=== PATIENT | male | born 1980 | race Caucasian/White ===

== ENCOUNTER → 2017-10-26 10:44 | Outpatient (CLI) | payer OTHER, SELFPAY ==
[2017-10-26 12:19] LABS: Erythrocyte Sedimentation Rate < 1 mm/hr (0-15)
[2017-10-26 12:47] LABS: CRP < 2.90 mg/L (0.0-3.0)
[2017-10-27 16:11] LABS: Endomysial Antibody IgA Negative (Negative)
[2017-10-27 17:14] LABS: Immunoglobulin A 193 mg/dL (90-386); t-Transglutaminase IgA <2 U/mL (0-3)
== END ==
PROVIDERS: Family Provider Family Medicine; PCP Family Medicine; Visit Provider Family Medicine
DX: R14.0 Abdominal distension (gaseous) (principal)
CPT/HCPCS: 36415; 82784; 83516; 85652; 86140; 86255

== ENCOUNTER → 2017-12-07 09:44 | Outpatient (CLI) | payer OTHER, SELFPAY ==
--- NOTE | 2017-12-07 09:47 | NM_ITS ---
CLINICAL: 37-year-old male with reported history of chronic nausea. SEMI-SOLID PHASE 99m Tc SULFUR COLLOID GASTRIC EMPTYING STUDY COMPARISON: None available FINDINGS: The patient was administered 1.0 mCi of 99m Tc sulfur colloid mixed with oatmeal and consumed per os. Image acquisitions in the anterior-posterior projections for a total of 60 minutes. There is prompt visualization of the stomach. There is no gastroesophageal reflux identified. First order kinetics are maintained throughout the duration of the acquisitions. The T1/2 linear fit was calculated to be 88.21 minutes, (Normal: 12-56 minutes). NM/Gastric Emptying Study IMPRESSION: 1. ABNORMAL 99m Tc sulfur colloid semi-solid phase (oatmeal) gastric emptying imaging examination. A. There is delayed semi-solid phase gastric emptying compared to normal controls with maintained first order kinetics throughout all components of the examination. (Najma et al, J Nucl Med Tech 38: 186, 2010). Electronically Signed: Toan Poe DO at 23:37 EDT Tel , Service support ,
== END ==
PROVIDERS: Family Provider Family Medicine; PCP Family Medicine; Referring Provider Internal Medicine Gastroenterology; Visit Provider Internal Medicine Gastroenterology
DX: R11.0 Nausea (principal)
CPT/HCPCS: 78264; A9541

== ENCOUNTER → 2018-03-21 08:13 | Outpatient (CLI) | payer OTHER, SELFPAY ==
--- NOTE | 2018-03-21 08:16 | US_ITS ---
STUDY: ABDOMINAL ULTRASOUND - RIGHT UPPER QUADRANT REASON FOR VISIT: Male, 37 years old. 2 month history of right upper quadrant pain with nausea. TECHNIQUE: Ultrasound evaluation of the right upper quadrant was performed with real-time and static palacio-scale imaging. TECHNICAL QUALITY: Adequate. COMPARISON: None. FINDINGS: Liver: The liver measures 13.3 cm. There is normal echogenicity of the liver. The bile ducts are within normal limits. There is hepatic color flow. The direction of portal flow is hepatopetal. In the left lobe of the liver, there is a 1.8 cm x 1.4 cm x 1.6 cm echogenic nodule suggestive of a hemangioma. Adjacent to this, a similar appearing nodular density measuring 1.2 cm x 1 cm x 1.4 cm is seen. These most likely represent hepatic hemangiomas. Gallbladder: Normal distended gallbladder. The gallbladder wall measures 2.3 mm. There is a negative sonographic Marina's sign. There is no pericholecystic fluid. There are no gallstones. Common Bile Duct (C.B.D.): The common bile duct measures 4.3 mm. Pancreas: Normal size of the head, body and tail of the pancreas. There is normal echogenicity of the pancreas. There is no demonstrated pancreatic mass or cyst. Right Kidney: Normal size of the right kidney. The right kidney measures 11.5 cm x 6.4 cm x 6.3 cm. Normal renal cortex. The right cortex measures 2.0 cm. There is no demonstrated renal mass or cyst. There is no right hydronephrosis. US/Abdomen Limited IMPRESSION: Findings suggestive of liver two small hemangiomas in the left lobe of the liver. Electronically Signed: Alberto Ochoa MD at 15:20 EST Tel [phone], Service support ,
--- OUTSIDE RECORDS SUMMARY | 2018-05-23 15:36 | XMS RPT_ITS ---
:1980 Author Organization [facility] Care Team Providers Name Role Phone NATASHA CHRISTINA Attending Unavailable CADE SCRUGGS Referring Unavailable SARA POLO, DR. DICKEY Attending Unavailable DR. CADE SCRUGGS DO Primary Care Unavailable Cade Scruggs Attending Unavailable Cade Scruggs Primary Care Unavailable CHRISTIANE AU Attending Unavailable CHRISTIANE AU Referring Unavailable Cade Scruggs Primary Care Unavailable CHRISTIANE AU Consulting Unavailable ASSESSMENT, HEALTH RISK Attending Unavailable ShebaCade rivera Primary Care Unavailable Cade Scruggs Attending Unavailable Sheba Cade Primary Care Unavailable Ty Cast Attending Unavailable Ty Cast Referring Unavailable Sheba Cade Primary Care Unavailable Ines Yarbrough Attending Unavailable ShebaCade rivera Referring Unavailable PROBLEMS PROBLEMS DATE TYPE CONDITION / CODE ATTENDING STATUS SOURCE 10/26/2017 Unknown R14.0 - Abdominal Cade Scruggs Active [facility] R14.0(ICD-10) Repository PROCEDURES PROCEDURES No Procedure Records FoundRESULTS RESULTS ABDOMEN LIMITED Observed: 03/21/2018 Status: F Source: [place] 8:16 AM [facility] REPOSITORY [facility] Imaging Services [address] [place] [address] Abdomen Limited MR#: [id number] Acct: [id number] Name: ASHWINI ANDREWS Rep #: [id number] : 1980 M 37 From: Alberto Ochoa MD PCP: Cade Scruggs DO Status: REG CLI Study: Abdomen Limited Date of Exam: 03/21/18 Exam# [id number] Ordering Dr: RK DELGADO STUDY: ABDOMINAL ULTRASOUND - RIGHT UPPER QUADRANT REASON FOR VISIT: Male, 37 years old. 2 month history of right upper quadrant pain with nausea. TECHNIQUE: Ultrasound evaluation of the right upper quadrant was performed with real-time and static palacio-scale imaging. TECHNICAL QUALITY: Adequate. COMPARISON: None. FINDINGS: Liver: The liver measures 13.3 cm. There is normal echogenicity of the liver. The bile ducts are within normal limits. There is hepatic color flow. The direction of portal flow is hepatopetal. In the left lobe of the liver, there is a 1.8 cm x 1.4 cm x 1.6 cm echogenic nodule suggestive of a hemangioma. Adjacent to this, a similar appearing nodular density measuring 1.2 cm x 1 cm x 1.4 cm is seen. These most likely represent hepatic hemangiomas. Gallbladder: Normal distended gallbladder. The gallbladder wall measures 2.3 mm. There is a negative sonographic Marina's sign. There is no pericholecystic fluid. There are no gallstones. Common Bile Duct (C.B.D.): The common bile duct measures 4.3 mm. Pancreas: Normal size of the head, body and tail of the pancreas. There is normal echogenicity of the pancreas. There is no demonstrated pancreatic mass or cyst. Right Kidney: Normal size of the right kidney. The right kidney measures 11.5 cm x 6.4 cm x 6.3 cm. Normal renal cortex. The right cortex measures 2.0 cm. There is no demonstrated renal mass or cyst. There is no right hydronephrosis. US/Abdomen Limited IMPRESSION: Findings suggestive of liver two small hemangiomas in the left lobe of the liver. Electronically Signed: Alberto Ochoa MD at 15:20 EST Tel [phone], Service support , CC: RK Scruggs DO Glass Cleaning Machine Tender: Signed PROGRESS Observed: 12/13/2017 Status: COMPLETED Source: [place] 11:00 AM [facility] REPOSITORY O ID: [id number] Author: Abel Oneal Service: (none) Author Type: Physician Type: Progress Notes Filed: 12/13/2017 11:12 AM Note Text: Superficial keratitis of right eye (primary encounter diagnosis) Better, using tears Wears oasys dw lotemax couple days No cls couple days Abel Oneal MD URGENT CARE VISIT Observed: 12/11/2017 Status: F Source: [place] REPORT 10:12 AM [facility] RE[facility]IT[facility] [address] [place] [address] [address] [place] [address] OFFICE VISIT Date of Service: 12/11/17 MR#: [id number] Acct: [id number] Name: ASHWINI ANDREWS Rep #: [id number] : 1980 Provider: CHARLES Yarbrough Age/Sex: 37/M Location: [facility] Status: Signed Intake Vital Signs12/11/17 Height 6 ft 12/11/17 Weight: 170 lb 12/11/17 Body Mass Index (BMI) 23.0 12/11/17 Blood Pressure 106/60 12/11/17 Blood Pressure Location Lt brachial 12/11/17 Blood Pressure Position Sitting Intake Visit Reasons: RIGHT EYE Chief Complaint: rigght eye pain and tearing Allergies latex Allergy (Mild, Verified 12/11/17 09:08) Rash Medications NK 02/17/17 [History Confirmed 12/11/17] PFSH Medical History Acid reflux (Acute) Back pain (Acute) Diarrhea (Acute) Hemorrhoids (Acute) Surgical History History of colonoscopy (Acute) History of knee problem (Acute) Family History Mother Breast cancer Father Cancer CAD (coronary artery disease) Grandmother Colon cancer Social History Smoking Status: Never smoker alcohol intake: never substance use type: does not use HPI HPI Chief Complaint: rigght eye pain and tearing Details: ASHWINI ANDREWS, is a 37 M who presents to the office today for pain and tearing of his right eye every since last night at 9pm when he popped his right contact out. He states he has had contacts for 10 years and never had this happen. He woke up at 2 am with increased pain and tearing and states he put his contact back in and it actually felt better. His pain level fluctuates from 4-6/10 at this time. He has a mild headache this morning right lateral. No visual problems or changes. ROS Const Constitutional: No body ache, chills, fatigue, fever(s), night sweats, change in appetite, weakness, frequent falls, headache(s) or excessive sweating Eyes Eyes: Positive for eye pain (right) and blurry vision (only when tearing); no visual disturbances, light sensitivity, change in vision, discharge, bulging eyes, floaters, spots in vision or tunnel vision ENT ENT: No ear pain, ear discharge, hearing loss, dizziness/vertigo, nasal discharge, difficulty swallowing, sore throat, neck pain or headache(s) Resp Respiratory: No cough, chest congestion, hemoptysis, shortness of breath or wheezing Cardio Cardiology: No shortness of breath, irregular heart rhythm, lightheadedness, chest pain at rest, chest pain with exertion, generalized swelling, orthopnea, palpitations or excessive sweating Gastro GI: No difficulty swallowing, abdominal pain, bloating, change in bowel habits, diarrhea, blood in stool, Black,tarry stools, nausea/dyspepsia or vomiting Genitourinary Male: No painful urination, urinary frequency, difficulty urinating or blood in urine Musc Musculoskeletal: No joint pain, back pain, numbness, tingling or neck pain Skin Skin: No lesions, itching or rash Neuro Neurology: No visual disturbances, numbness, tingling, abnormal speech, confusion, unsteady gait/balance, dizziness, weakness, frequent falls, loss of vision, headache(s) or memory loss Psych Psychiatric: No change in appetite, No confusion, No anxiety, No memory loss, No depression Endo Endocrine: No fatigue, cold intolerance, excessive sweating, flushing, heat intolerance or increased thirst/drinking Aller/Imm Allergy/Immunologic: No wheezing, itchy eyes, food intolerance, seasonal allergy symptoms or hives Tj/Lymp Hematologic/Lymphatic: No easy bruising Exam Const General: cooperative, no acute distress, healthy appearing, well developed Nutritional Appearance: well nourished Orientation: alert, oriented x3 [facility] Head: normal to inspection, normocephalic, No periorbital ecchymosis Ears: hearing grossly normal bilaterally, external ears normal, no periauricular adenopathy, EAC's normal, TM's normal bilaterally Nose: nasal mucous membranes and turbinates normal, no nasal discharge Face and sinus: normal facial exam, sinuses nontender Throat: posterior oropharynx normal Eyes Visual Richardson: normal visual richardson by confrontation Alignment and Position: alignment normal Periorbital: periorbital findings normal Eyelids: eyelids normal Conjunctivae: conjunctival abnormality (mild erythema noted medially) right Sclera: sclerae normal Pupils: PERRL, normal by confrontation, accommodation normal EOM: EOM intact bilaterally Direct ophthalmoscopy: normal light reflex, no papilledema, no photophobia, fundi normal bilaterally Other: Topical tetracaine drops applied. Right eye was flouresced and examined with black light. No foreign body visible. Slight medial abrasion (1mm) noted. Eyelid flipped without findings. The eye was irrigated with saline. Neck Neck: normal visual inspection, supple, no lymphadenopathy, full ROM, no meningeal signs Neck mass: No Lymphatic: no lymphadenopathy noted Chest Chest palpation AND inspection: normal inspection of the chest Resp Effort AND Inspection: normal respiratory effort, able to speak in complete sentences, symmetric chest movement, no audible wheezes, no cough, not labored, no respiratory distress Auscultation: Bilateral: Clear to Auscultation Cardio Rate: regular rate Rhythm: regular rhythm Heart Sounds: S1 normal, S2 normal Skin General: no rashes or lesions noted Neuro General: alert, oriented x3, moves all extremities Speech: speech normal Gait: normal gait Extrem General: normal to inspection Psych Appearance: grossly normal, well kempt Mental Status: mental status grossly normal Speech and Movement: speech and movement normal Attitude: cooperative Thought Process: normal Thought Content: normal Judgment: judgment good Assessment AND Plan Problems 1. Abrasion of right eye, initial encounter S05.8X1A Plan Leave contacts out for 5 days. Ibuprofen OTC every hours with food for inflammation/pain f/u with opthalmologist if pain persists greater than 2 days Patient has a 2/10 mild headache. He was advised to go to the ER if his headache becomes severe, vomits, AMS, visual changes etc Coding Level of Care Code Off vis,est,level 3 Diagnoses Abrasion of right eye, initial encounter S05.8X1A Encounter type: initial encounter Comment Right eye flouresced after Tetracaine, and examined with black light. No foreign body. 12/11/17 1012 <Electronically signed by Ines SOTO> Date Ines SOTO Cosigner Signature: Date (if applicable) CC: JM Observed: 12/08/2017 Status: COMPLETED Source: [place] 12:00 AM [facility] REPOSITORY Telephone (GASTMN) ASHWINI ANDREWS ([id number]) 1980 M Date Time Provider Department 12/08/17 NATASHA RODRIGUEZ GASTMN During your visit today, we recorded the following information about you: Samantha Collins RN, RN 12/08/2017 5:35 PM Signed Patient referred to gastroparesis clinic; records placed in S drive for review. Natasha DO Ashley 12/14/2017 8:11 AM Signed Needs a real GES. His was a 60 min oatmeal study Maria C Love [facility] 12/17/2017 12:23 PM Signed Left message with Dr. Busby's office as he is the referring physician. I left message that 4 hour solid study done with toast and eggs would be required for the patient to qualify for our GP clinic. Allergies As of Date: 12/08/2017 Noted Allergy Reaction LATEX 03/29/2017 14 - Other: See Comments Comments: Pt. States he has a mild reaction that occurs; redness in area of latex Date Reviewed: 03/29/2017 Reviewed by: Maria Teresa Weiss Ma - Fully Assessed Reason for Visit: Outside Referral Requests [[id number]] Cmt: gastroparesis Problem List As Of Date: 12/08/2017 (None) Encounter Status:Closed by SAMANTHA COLLINS on 12/15/17 GASTRIC EMPTYING Observed: 12/07/2017 Status: F Source: [place] STUDY 9:47 AM [facility] REPOSITORY [facility] Imaging Services [address] [place] [id number] Gastric Emptying Study MR#: [id number] Acct: [id number] Name: ASHWINI ANDREWS Rep #: [id number] : 1980 M 37 From: Toan Poe DO PCP: Cade Scruggs DO Status: REG CLI Study: Gastric Emptying Study Date of Exam: 12/07/17 Exam# [id number] Ordering Dr: Ty Cast MD CLINICAL: 37-year-old male with reported history of chronic nausea. SEMI-SOLID PHASE 99m Tc SULFUR COLLOID GASTRIC EMPTYING STUDY COMPARISON: None available FINDINGS: The patient was administered 1.0 mCi of 99m Tc sulfur colloid mixed with oatmeal and consumed per os. Image acquisitions in the anterior-posterior projections for a total of 60 minutes. There is prompt visualization of the stomach. There is no gastroesophageal reflux identified. First order kinetics are maintained throughout the duration of the acquisitions. The T1/2 linear fit was calculated to be 88.21 minutes, (Normal: 12-56 minutes). NM/Gastric Emptying Study IMPRESSION: 1. ABNORMAL 99m Tc sulfur colloid semi-solid phase (oatmeal) gastric emptying imaging examination. A. There is delayed semi-solid phase gastric emptying compared to normal controls with maintained first order kinetics throughout all components of the examination. (Najma et al, J Nucl Med Tech 38: 186, 2010). Electronically Signed: Toan Poe DO at 23:37 EDT Tel , Service support , CC: Cade Scruggs DO; Ty Cast Glass Cleaning Machine Tender: Signed ERYTHROCYTE SED RATE Collected: 10/26/2017 Status: F Source: [place] 10:45 AM [facility] REPOSITORY TYPE CODE TESTS RESULT OUT OF RANGE REFERENCE UNITS LAB L102.0000 0-15 mm/hr Normal SED RATE < 1 Performed By: #### L101.9900 #### [facility] [address] [place], [place], [id number] CRP Collected: 10/26/2017 Status: F Source: [place] 10:45 AM [facility] REPOSITORY TYPE CODE TESTS RESULT OUT OF RANGE REFERENCE UNITS LAB L501.6710 0.0-3.0 mg/L Normal < 2.90 C-REACTIVE PROT Result Comment: C-Reactive Protein (CRP) provides useful information for the diagnosis, therapy and monitoring of inflammatory processes and associated diseases. For the evaluation of Relative Risk for Cardiovascular Disease, a High Sensitivity CRP (HSCRP) should be ordered. Performed By: #### L501.6710 #### [facility] [address] [place], [place], [id number] CELIAC DISEASE Collected: 10/26/2017 Status: F Source: [place] PROFILE 10:45 AM [facility] REPOSITORY TYPE CODE TESTS RESULT OUT OF RANGE REFERENCE UNITS LAB L3200.1400 90-386 mg/dL Normal IMMUNO A 193 Result Comment: Performed at: - [facility] [address] [id number] Brazing Machine Tender: Ty Rivers PhD, Phone: [phone] LAB L3537.4987 0-3 U/mL Normal tTG IGA <2 Result Comment: Negative 0 - 3 Weak Positive 4 - 10 Positive >10 Tissue Transglutaminase (tTG) has been identified as the endomysial antigen. Studies have demonstr- ated that endomysial IgA antibodies have over 99% specificity for gluten sensitive enteropathy. LAB L3410.5017 Negative Normal ENDOMYSIAL IGA Negative Performed By: #### L3410.2400 #### [facility] (refer to report for specific site) refer to report for address and phone number CBC, EMPLOYEE Collected: 10/11/2017 Status: F Source: [place] 8:39 AM [facility] REPOSITORY TYPE CODE TESTS RESULT OUT OF RANGE REFERENCE UNITS LAB L100.1000 4.4-11.0 K/mm3 Low WBC 3.5 LAB L100.1200 4.6-6.2 M/mm3 Normal RBC 5.44 LAB L100.1300 13.0-16.5 g/dl High HGB 16.6 LAB L100.1400 40-54 % Normal HCT 49.4 LAB L100.1500 80-94 fL Normal MCV 90.8 LAB L100.1600 27.0-32.0 pg Normal MCH 30.5 LAB L100.1700 32-36 g/gl Normal MCHC 33.6 LAB L100.1810 11.6-14.6 % Normal RDW CV 12.2 LAB L100.1820 35.1-43.9 fl Normal RDW SD 40.6 LAB L100.1900 150-450 K/mm3 Normal PLT 210 LAB L100.2000 6.2-12.0 fl Normal MPV 11.4 LAB L100.2110 47-70 % Normal NEUT% 48.7 LAB L100.2210 19-41 % Normal LY% 39.2 LAB L100.2310 0-10 % Normal MONO% 7.2 LAB L100.2410 0-5 % Normal EO% 4.3 LAB L100.2510 0-1 % Normal BASO% 0.6 LAB L100.2620 2.0-7.7 X10 3/uL Low Absolute Neut 1.7 LAB L100.2720 0.83-4.51 X10 3/ul Normal Absolute Lymph 1.36 Performed By: #### L100.0200 #### [facility] [address] [facility] [place], [address] URINALYSIS, EMPLOYEE Collected: 10/11/2017 Status: F Source: [place] 8:39 AM [facility] REPOSITORY TYPE CODE TESTS RESULT OUT OF RANGE REFERENCE UNITS LAB L400.3000 Yellow COLOR Normal Yellow LAB L400.3050 Clear Normal CLARITY Clear LAB L400.3200 Normal mg/dl Normal GLUCOSE, UR Normal LAB L400.3300 Negative mg/dL Normal BILIRUBIN URINE Negative LAB L400.3400 Negative mg/dl Normal KETONE UR Negative LAB L400.3465 1.002-1.030 Normal SP.GR. DIPSTX 1.005 LAB L400.3550 5.0 - 8.0 pH UR Normal 7.0 LAB L400.3600 Negative mg/dl PROT Normal DIPSTX Negative LAB L400.3700 Normal mg/dl Normal UROBILI Normal LAB L400.3750 Negative Normal NITRITE UR Negative LAB L400.3780 Negative /ul Normal OCCULT BLOOD-UR Negative LAB L400.3800 Negative /ul LEUK Normal ESTERASE Negative Performed By: #### L400.0100 #### [facility] [address] [facility]. [place], [place], [address] EMPLOYEE PROFILE Collected: 10/11/2017 Status: F Source: [place] 8:39 AM [facility] REPOSITORY TYPE CODE TESTS RESULT OUT OF RANGE REFERENCE UNITS LAB L501.0100 74-106 mg/dL Normal GLU 94 Result Comment: Please note revised GLUCOSE reference range effective 2017. LAB L501.1000 7-18 mg/dL Normal BUN 15 LAB L501.1100 0.70-1.30 mg/dL Normal CREAT,SERUM 1.01 Result Comment: The validity of the calculated GFR AND GFRAA in patients over 70 years has not been determined. Clinical correlation is essential. LAB L501.1110 >60 mL/min Normal EST GFR 88 Result Comment: Non- GFR Calc LAB L501.1115 >60 mL/min Normal EST GFR - AA 107 Result Comment: GFR Calc LAB L501.1300 10-20 RATIO Normal BUN/CRE 14.9 LAB L501.1400 3.5-7.2 mg/dL Normal URIC 5.3 Result Comment: The drugs N-Acetylcysteine and Metamizole may falsely depress this assay. LAB L501.1500 6.4-8.2 g/dL Normal T PROT 7.7 LAB L501.1800 3.2-5.0 g/dL Normal ALB 4.3 LAB L501.1950 2.2-4.2 g/dL Normal GLOB 3.4 LAB L501.2000 0.9-2.4 RATIO Normal A/G 1.3 LAB L501.2200 8.5-10.1 mg/dL Normal CA 9.0 LAB L501.2300 2.5-4.9 mg/dL Normal PHOS 3.1 LAB L501.4100 15-37 U/L Normal AST 22 LAB L501.4305 45-117 U/L Low ALK P 42 LAB L501.4405 16-61 U/L Normal ALT 25 LAB L501.4600 0.20-1.00 mg/dL High T BILI 1.80 LAB L501.4700 0.00-0.30 mg/dL Normal D BILI 0.26 LAB L501.4900 200 mg/dL Normal CHOL 183 Result Comment: <200 mg/dL Desirable 200-240 mg/dL Borderline >240 mg/dL High Risk LAB L501.5000 mg/dL Normal TRIG 60 Result Comment: The drugs N-Acetylcysteine and Metamizole may falsely depress this assay. Serum Triglycerides Reference Interval Normal <150 mg/dL Borderline high 150 - 199 mg/dL High 200 - 499 mg/dL Very High > or = 500 mg/dL LAB L501.5300 136-145 mmol/L Normal NA 139 LAB L501.5600 3.5-5.1 mmol/L Normal K 4.4 LAB L501.5900 98-107 mmol/L Normal CL 104 LAB L501.6100 21.0-32.0 mmol/L Normal CO2 31.0 LAB L501.6200 5-15 Low 4 GAP LAB L501.6400 mg/dL Normal HDL 68 Result Comment: The drugs N-Acetylcysteine and Metamizole may falsely depress this assay. Reference Range HDL <40 mg/dL Low HDL Cholesterol HDL >or= 60 mg/dL High HDL Cholesterol LAB L501.6475 Normal CHOL:HDL 2.70 LAB L501.6500 0-130 mg/dL Normal LDL 103 LAB L501.6600 5-40 mg/dL Normal VLDL 12 LAB L504.2610 87-241 U/L Normal LDH 175 Performed By: #### L500.2900 #### [facility] [address], [address] NICOTINE URINE DRUG Collected: 10/11/2017 Status: F Source: [place] SCREEN 8:39 AM [facility] REPOSITORY TYPE CODE TESTS RESULT OUT OF RANGE REFERENCE UNITS LAB L505.6250 TO BE Normal CONFIRMED Result Comment: CONFIRMATORY TESTING FOR ALL POSITIVE URINE DRUG SCREEN RESULTS WILL ONLY BE SENT OUT UPON PHYSICIAN ORDER. The results of Urine Drug Screen methods provide only preliminary analytical test results. A more specific alternate chemical method must be used in order to obtain a confirmed analytical result. Gas chromatography/mass spectrometery (GC/MS) is the preferred confirmatory method. Clinical consideration and professional judgement should be applied to any drug of abuse test result, particularly when preliminary positive results are used. LAB L505.6270 <200 ng/mL Normal COT DRG Negative SCREEN Result Comment: Cotinine is the first-stage metabolite of Nicotine. Performed By: #### L505.6240 #### [facility] [address] [facility] [place], [address] HISTORY PHYSICAL Observed: 03/29/2017 Status: COMPLETED Source: [place] 1:11 PM [facility] REPOSITORY HNO ID: [id number] Author: Natasha Christina Service: (none) Author Type: Physician Type: HANDP Filed: 04/06/2017 1:35 PM Note Text: New Patient Consult REASON FOR VISIT Ashwini Andrews is a 36 year old male who is scheduled for a consult at the request of Cade Scruggs for Consult. My final recommendations will be communicated back to the requesting physician by the way of the shared medical record, fax, or via US Mail History of Present Illness: 36 year old male with diagnosis of prolapsed hemorrhoid for 5-6 years. He has had a few differing opinions on treatment for the hemorrhoid. He does notice some tissue/skin tag on the anal area, no complaints of pain or irritation. Bowel function 2-3 times a day, soft formed stool, denies straining. FUNCTIONAL STATUS: Do heavy work around the house, such as scrubbing floors, lifting or moving heavy furniture (8.00 METs) No past medical history on file. PAST SURGICAL HISTORY Procedure Laterality Date - KNEE ARTHROSCOP MENISCUS REPAIR MED/LAT Right 2012 - VASECTOMY HX Bilateral 2014 History reviewed. No pertinent family history. Social History Substance Use Topics - Smoking status: Never Smoker - Smokeless tobacco: Never Used - Alcohol use Not on file The patient has the following: Problem List (None) MEDICATIONS No current outpatient prescriptions on file. No current facility-administered medications for this visit. CURRENT ALLERGIES ALLERGIES Allergen Reactions - Latex Other: See Comments Pt. States he has a mild reaction that occurs; redness in area of latex REVIEW OF SYSTEMS PAIN ASSESSMENT: General: No weight loss, malaise or fevers. Neuro: negative Respiratory: No history of current cough or dyspnea, or pneumonia in the past 6 weeks. No history of respiratory/pulmonary symptoms or problems Cardiovascular: No history of HTN requiring medication, no history of angina, CHF, DE, cardiac surgery or stents. Denies rest pain, gangrene or revascularization/amputation for PVD. No history of cardiovascular symptoms or problems. GI: Positive for Abdominal pain, GI bleed < 30 days (date) rectal bleeding in past from thrombosed hemorrhoid, Colonoscopy 2002 negative : No history of UTI in past 6 weeks. No history of renal failure. Not currently on or requiring dialysis. No history of symptoms or problems. 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 Has not taken steroids within the past 30 days. No history of endocrinological symptoms or problems. Hematology: No history of bleeding or clotting disorder. Pt is not taking anti-coagulation or platelet medications. No history of hematological symptoms or problems. Oncology: No history of CA metastasis, chemo within 30 days, or radiotherapy within 90 days. Has not lost 10% of body wt in 6 months. No history of oncological symptoms or problems. Psych: No history of psychiatric symptoms or problems. Musculoskeletal: Negative for joint pain or swelling, back pain or muscle pain. Skin: Negative for lesions, rash and itching. Anemia: No PHYSICAL EXAMINATION BP 108/67 Pulse 81 Ht 6' 0 (1.83m) Wt 169 lb (76.7kg) SpO2 100% BMI 22.92 kg/(m2). General Appearance: Well appearing, alert, in no acute distress, well-hydrated, well nourished. Skin: Skin color, texture, turgor normal, no suspicious rashes or lesions Head: Normocephalic, no masses, lesions, tenderness or abnormalities Oropharynx: Lips, mucosa, and tongue normal, teeth and gums normal, oropharynx normal Neck: Supple, no adenopathy; thyroid symmetric, normal size, no bruits Lungs: Lungs clear to auscultation. No wheezing, rhonchi, rales Heart: RRR without murmur, gallop, or rubs. No ectopy Extremities: No deformities, edema, skin discoloration, clubbing or cyanosis. Good capillary refill. Neuro: Gait normal. Reflexes normal and symmetric. Sensation grossly intact. Abdomen: Normal abdominal exam, Negative CVA tenderness Anorectal: Hemorrhoids: internal and external Single qaudrant Anoscopy: The patient was placed in chest-knee position. After digital exam with a lubricated finger, the scope was easily inserted. There were Moderately enlarged right posterior internal and external hemorrhoids present. The mucosa was otherwise normal. Assessment ASSESSMENT Single quadrant mixed hemorrhoid grade 3 RECOMMENDATION Single quadrant hemorrhoidectomy, traditional and excisional Natasha Christina DO DATE: 03/29/17 TIME: 1:11 PM ALLERGIES ALLERGIES DATE TYPE / CODE NAME / CODE REACTION SEVERITY SOURCE 12/11/2017 Drug latex/[id number] Rash [facility] Allergy/4160 8921(RXNORM) Hospital 13915(SNOMED Repository CT) ENCOUNTERS ENCOUNTERS ADMIT/DISCHARGE ACCOUNT NUMBER ADMITTING ENCOUNTER LOCATION SOURCE CLASS 03/21/2018 [id number] [facility] ding:US Repository 02/14/2018 [id number] [facility] ding:LAB.FUT Repository URE 01/05/2018 [id number] Ambulatory BBuilding: [facility] Repository 12/11/2017/12/12/19 [id number] Ambulatory BMSBuilding: [facility] [address] [facility] Repository 12/07/2017 [id number] Ambulatory [facility] ding:NM Repository 10/26/2017 [id number] Ambulatory [facility] ding:BFHLAB Repository 10/11/2017 [id number] Ambulatory [facility] ding:EMPH Repository 03/29/2017/04/15/19 [id number] Ambulatory [address] Repository PAYERS PAYERS ENCOUNTER GUARANTOR PAYER SUBSCRIBER SOURCE 03/21/2018 ASHWINI Fu Primary Insurance:[facility] ASHWINI Linedroster [id number] [facility]OB: [address] Number: Repository [id number]: 330 [id number] [phone] () Date:4647-27-76VY [address] [address], [place] [address]LF: CHECK WEBSITE 03/21/2018 Secondary NOT GIVENUNK [place] Insurance:SELF PAY [facility] Number: Effective Repository Date:2018-03-17 02/14/2018 ASHWINI Fu Primary Insurance:[facility] ASHWINI Graham [id number] [facility]: [facility] [id number] Number: Repository [id number]: [phone] [id number] [phone] () Date:8409-62-78PC [address] [address], [place] [address]NI: CHECK WEBSITE 02/14/2018 Secondary NOT GIVENUNK [place] Insurance:SELF PAY [facility] Number: Effective Repository Date:2018-02-14 12/11/2017 ASHWINI Fu Primary Insurance:[facility] ASHWINI Graham [id number] [facility]DOB: [address] Number: Repository [id number]: [phone] [id number] [phone] () Date:6382-02-16IJ [address] [address], [place] [address]DM: CHECK WEBSITE 12/11/2017 Secondary NOT GIVENUNK [place] Insurance:SELF PAY [facility] Number: Effective Repository Date:2017-12-11 12/07/2017 ASHWINI Fu Primary Insurance:[facility] ASHWINI Fu [place] [id number] [facility]OB: [facility] [id number] Number: Repository [id number]: 330 [id number] [phone] () Date:5626-51-41RT [address] [address], [place] [address]XH: CHECK WEBSITE 12/07/2017 Secondary NOT GIVENUNK [place] Insurance:SELF PAY [facility] Number: Effective Repository Date:2017-11-17 10/26/2017 ASHWINI Fu Primary Insurance:[facility] ASHWINI Fu [place] [id number] [facility]OB: [facility] [id number] Number: Repository [address]Ujp: 330 [id number] [phone] () Date:7388-62-99BE [address] [address], [place] [address]QT: CHECK WEBSITE 10/26/2017 Secondary NOT GIVENUNK [place] Insurance:SELF PAY [facility] Number: Effective Repository Date:2017-10-26 10/11/2017 ASHWINI Fu Primary NOT GIVENUNK [place] [id number] Insurance:SELF PAY [place] Number: Effective Repository [phone]: [phone]) Date:2017-10-11 [phone] ()
== END ==
PROVIDERS: Family Provider Family Medicine; PCP Family Medicine
DX: R11.0 Nausea (principal)
CPT/HCPCS: 76705

== ENCOUNTER → 2018-04-04 09:16 | Outpatient (CLI) | payer OTHER, SELFPAY ==
--- NOTE | 2018-04-04 09:25 | NM_ITS ---
CLINICAL: 37-year-old male with reported history of chronic nausea. RADIONUCLIDE HEPATOBILIARY SCINTIGRAPHY COMPARISON: Abdominal ultrasound report 03/21/2018, 70 solid-phase gastric emptying study report 12/07/2017 FINDINGS: Following the intravenous administration of 5.1 mCi of 99m Tc Mebrofenin, hepatobiliary images reveal: 1. Relatively prompt and homogeneous radiopharmaceutical concentration is noted by a normal sized liver. No parenchymal defects are identified. 2. Gallbladder activity is identified at 10 minutes post radiopharmaceutical administration. 3. Small intestinal tract is observed at 45-60 minutes following tracer injection. 4. Washout of the radiopharmaceutical by the hepatic parenchyma appears qualitatively normal. Cholecystokinin (0.02 ug/kg) was administered intravenously over a 30-minute period. The post CCK gallbladder ejection fraction calculated at 21 minutes following Cholecystokinin administration was noted to be 84.0 % (normal greater than 35%). During 30 minutes of post CCK imaging, there is no scintigraphic evidence of reflux of the radiotracer into the common hepatic duct or refilling of the gallbladder. There is scintigraphic evidence of post CCK duodenal gastric reflux. NM/Hepatobilliary Img w/Pharm Int IMPRESSION: 1. A gallbladder ejection fraction calculated to be greater than 35% following the administration of Cholecystokinin makes the probability of functional hepatobiliary disease (gallbladder and/or sphincter of Oddi dyskinesia) and/or organic hepatobiliary disease (chronic acalculous cholecystitis and/or cystic duct syndrome) to be low. (Jerald Martinez et al, Journal of Nuclear Medicine 32:1695, 1990). 2. There is scintigraphic evidence of post CCK duodenal-gastric reflux. (Jarrod et al, Nucl Med Anila Livia Press pg. 35, 1980). Electronically Signed: Toan Poe DO at 23:21 EST Tel , Service support ,
== END ==
PROVIDERS: Family Provider Family Medicine; PCP Family Medicine; Referring Provider Internal Medicine Gastroenterology; Visit Provider Internal Medicine Gastroenterology
DX: R11.0 Nausea (principal); K62.1 Rectal polyp; R10.11 Right upper quadrant pain
CPT/HCPCS: 78227; A9537; J2805

== ENCOUNTER → 2018-10-12 07:52 | Outpatient (CLI) | payer OTHER, SELFPAY ==
[2017-12-11 09:06] VITALS: BMI 23.0
[2018-10-16 03:06] LABS: Immunoglobulin A 211 mg/dL (90-386); Immunoglobulin G 1048 mg/dL (700-1600)
[2018-10-16 10:31] LABS: Immunoglobulin E 20 IU/mL (6-495); Immunoglobulin M 17 mg/dL (20-172)
== END ==
PROVIDERS: Family Provider Family Medicine; PCP Family Medicine; Referring Provider Family Medicine; Visit Provider Family Medicine
DX: D72.819 Decreased white blood cell count, unspecified (principal)
CPT/HCPCS: 36415; 82784; 82785

== ENCOUNTER → 2019-02-15 08:46 | Outpatient (CLI) | payer OTHER, SELFPAY ==
[2017-12-11 09:06] VITALS: BMI 23.0
[2019-02-15 12:42] LABS: Erythrocyte Sedimentation Rate < 1 mm/hr (0-15)
[2019-02-15 12:43] LABS: Absolute Lymphocyte Count 1.38 X10^3/uL (0.83-4.51); Absolute Neutrophil Count 1.9 X10^3/uL (2.0-7.7); Basophil# 0.04 X10^3/uL; Eosinophil# 0.25 X10^3/uL; Eosinophils% 6.4 % (0-5); Hematocrit 49.5 % (40-54); Hemoglobin 16.5 g/dL (13.0-16.5); Lymphocyte # 1.38 X10^3/ul (4.0); Lymphocyte % 35.5 % (19-41); Mean Corp Hgb Conc 33.3 g/dL (32-36); Mean Corpuscular Hgb 30.8 pg (27.0-32.0); Mean Corpuscular Volume 92.4 fL (80-94); Mean Platelet Vol. 11.4 fl (6.2-12.0); Monocyte# 0.34 X10^3/uL; Monocyte% 8.7 % (0-10); NRBC Flagged by Analyzer 0 % (0-5); Neutrophil # 1.87 X10^3/uL (2.7-7.7); Neutrophil % 48.1 % (47-70); Platelet Count 211 K/mm3 (150-450); RBC Distribution Width CV 11.9 % (11.6-14.6); RBC Distribution Width SD 40.8 fl (35.1-43.9); Red Blood Count 5.36 M/mm3 (4.6-6.2); White Blood Count 3.9 K/mm3 (4.4-11.0)
[2019-02-15 13:44] LABS: ALB/GLOB Ratio 1.4 RATIO (0.9-2.4); AST(SGOT) 22 U/L (15-37); Alanine Aminotransfer ALT/SGPT 30 U/L (16-61); Albumin, Serum 4.3 g/dL (3.2-5.0); Alkaline Phosphatase 41 U/L (45-117); Anion Gap 7 (5-15); BUN 16 mg/dL (7-18); CRP < 2.90 mg/L (0.0-3.0); Chloride 104 mmol/L (98-107); Creatinine, Serum 1.14 mg/dL (0.70-1.30); EST Glomerular Filtration Rate 76 mL/min (>60); Est Glom Filt Rate - Afr Amer 92 mL/min (>60); Glucose 84 mg/dL (74-106); Potassium 4.5 mmol/L (3.5-5.1); Protein, Total 7.3 g/dL (6.4-8.2); Sodium Level 139 mmol/L (136-145); T4 Free Direct 1.15 ng/dL (0.76-1.46); Thyroid Stim Hormone (TSH) 0.54 uIU/mL (0.358-3.74)
== END ==
PROVIDERS: Family Provider Family Medicine; PCP Family Medicine; Visit Provider Family Medicine
DX: R53.83 Other fatigue (principal); R51 Headache; D72.819 Decreased white blood cell count, unspecified
CPT/HCPCS: 36415; 80053; 82533; 84439; 84443; 85025; 85652; 86140

== ENCOUNTER → 2019-02-28 07:13 | Outpatient (CLI) | payer OTHER, SELFPAY ==
--- NOTE | 2019-02-28 07:18 | MRI_ITS ---
STUDY: MRI BRAIN WITH AND WITHOUT CONTRAST REASON FOR EXAM: Male, 38 years old. New constant h/a (prudencio.left temporal region), fatigue, night sweats, vision changes TECHNIQUE: Standardized multiplanar fat and water weighted pulse sequences were obtained. IV Yes. 15ml Dotarem via IV was administered for the contrast portion of the examination. COMPARISON: None. FINDINGS: There is no restricted diffusion to suggest ischemia/edema. No evidence of blood leg radiation products on axial T2 GRE sequence. Normal size of the ventricles and extra-axial spaces for the patient''s age. Normal white matter tracts of the supratentorial brain. Normal bilateral basal ganglia. Normal thalami. There is no extra-axial fluid accumulation. Normal flow voids within the major intracranial circulation suggesting patency by spin echo criteria. Normal venous enhancement. There is no enhancing intra-axial or extra-axial abnormality. Normal sella turcica, pituitary gland, infundibular stalk, optic chiasm and hypothalamus. Normal tectal plate and pineal gland. Normal midbrain, will and medulla. Normal cerebellum. Normal basal cisterns. Normal bilateral temporal bones. Normal bilateral internal auditory canals. No demonstrated orbital abnormality, within the constraints of a routine brain study. There is T2 hyperintensity completely filling the right maxillary sinus. Small amount of T2 hyperintensity variably fills right greater than left ethmoid air cells. There are no paranasal sinus air-fluid levels. Normal calvarium and skull base. Normal visualized soft tissue structures. Normal visualized upper cervical spine. MRI/Brain W/WO Contrast IMPRESSION: No mass or mass effect. No restricted diffusion. No pathologic enhancement. Nonspecific right maxillary and bilateral ethmoid paranasal sinus disease. No air-fluid levels to suggest an acute sinus process. Electronically Signed: Michael Correa MD at 7:37 EST , Service support ,
== END ==
PROVIDERS: Family Provider Family Medicine; PCP Family Medicine; Referring Provider Family Medicine; Visit Provider Family Medicine
DX: R51 Headache (principal)
CPT/HCPCS: 70553; A9575

== ENCOUNTER → 2021-01-06 10:09 | Outpatient (CLI) | payer OTHER, SELFPAY ==
--- NOTE | 2021-01-06 10:10 | RAD_ITS ---
STUDY: X-RAY CHEST REASON FOR EXAM: Male, 40 years old. Chest pressure TECHNIQUE: PA and lateral views of the chest. COMPARISON: None. FINDINGS: The lungs are clear and expanded. There is no demonstrated pleural abnormality. Normal size heart. Normal mediastinum and estela. Normal visualized pulmonary arteries. Normal visualized aortic arch and descending thoracic aorta. Normal visualized thoracic spine. Normal visualized ribs, clavicles, and shoulders. There is no demonstrated abnormality of the visualized soft tissue structures of the upper abdomen. RAD/Chest PA and Lateral IMPRESSION: Normal x-ray examination of the chest. Electronically Signed: Alberto Ochoa MD at 10:43 EST , Service support ,
== END ==
PROVIDERS: PCP Family Medicine; Referring Provider Physician Assistant; Visit Provider Physician Assistant
DX: R07.89 Other chest pain (principal)
CPT/HCPCS: 71046

== ENCOUNTER → 2021-01-13 09:44 | Outpatient (CLI) | payer OTHER, SELFPAY ==
[2021-01-13 12:18] LABS: Erythrocyte Sedimentation Rate < 1 mm/hr (0-20)
[2021-01-13 12:21] LABS: D-Dimer Quantitative (DVT/PE) <= 0.27 FEU/ug/m (0.27-0.49)
[2021-01-13 12:24] LABS: Absolute Lymphocyte Count 1.52 X10^3/uL (0.83-4.51); Absolute Neutrophil Count 1.8 X10^3/uL (2.0-7.7); Basophil# 0.04 X10^3/uL; Eosinophil# 0.19 X10^3/uL; Eosinophils% 4.9 % (0-5); Hematocrit 46.8 % (40-54); Lymphocyte # 1.52 X10^3/ul (0.83-4.51); Lymphocyte % 39.1 % (19-41); Mean Corp Hgb Conc 34.2 g/dL (32-36); Mean Corpuscular Hgb 30.8 pg (27.0-32.0); Mean Corpuscular Volume 90.2 fL (80-94); Mean Platelet Vol. 10.9 fl (6.2-12.0); Monocyte# 0.34 X10^3/uL; Monocyte% 8.7 % (0-10); NRBC Flagged by Analyzer 0 % (0-5); Neutrophil # 1.79 X10^3/uL (2.7-7.7); Platelet Count 240 K/mm3 (150-450); RBC Distribution Width CV 11.9 % (11.6-14.6); RBC Distribution Width SD 39.1 fl (35.1-43.9); Red Blood Count 5.19 M/mm3 (4.6-6.2); White Blood Count 3.9 K/mm3 (4.4-11.0)
[2021-01-13 12:36] LABS: ALB/GLOB Ratio 1.2 RATIO (0.9-2.4); AST(SGOT) 22 U/L (15-37); Alanine Aminotransfer ALT/SGPT 22 U/L (16-61); Albumin, Serum 3.9 g/dL (3.2-5.0); Alkaline Phosphatase 40 U/L (45-117); Anion Gap 1 (5-15); BUN 17 mg/dL (7-18); BUN/Creat Ratio 15.2 RATIO (10-20); CPK Total, Creatine Kinase 161 U/L (39-308); CRP < 2.90 mg/L (0.0-3.0); Calcium,Total 9.2 mg/dL (8.5-10.1); Chloride 107 mmol/L (98-107); Creatinine, Serum 1.12 mg/dL (0.70-1.30); EST Glomerular Filtration Rate 77 mL/min (>60); Est Glom Filt Rate - Afr Amer 93 mL/min (>60); Globulin 3.2 g/dL (2.2-4.2); Glucose 90 mg/dL (74-106); Potassium 4.3 mmol/L (3.5-5.1); Protein, Total 7.1 g/dL (6.4-8.2); Sodium Level 139 mmol/L (136-145); Troponin-I HS 5 pg/mL (3.0-78.0)
== END ==
PROVIDERS: PCP Family Medicine; Referring Provider Family Medicine; Visit Provider Family Medicine
DX: R07.9 Chest pain, unspecified (principal); R53.83 Other fatigue
CPT/HCPCS: 36415; 80053; 82550; 84484; 85025; 85379; 85652; 86140

== ENCOUNTER → 2021-01-31 07:48 | Outpatient (CLI) | payer OTHER, SELFPAY ==
--- NOTE | 2021-01-31 07:50 | CT_ITS ---
STUDY: CTA CHEST REASON FOR EXAM: Male, 40 years old. Left-sided chest pain with radiation. RADIATION DOSAGE (If Supplied By Facility): CTDIvol = ( 14.79 ) mGy, DLP = ( 302.58 ) mGycm TECHNIQUE: The examination was performed with the intravenous administration of IV 100mL Isovue-370. Post-processing of the angiographic images was performed, with multiplanar reformation and 3D reconstruction. Individualized dose optimization techniques were used for this CT. COMPARISON: None. FINDINGS: Normal enhancement of the main pulmonary artery and right and left pulmonary arteries. Normal enhancement of the bilateral peripheral pulmonary arteries. There is no demonstrated pulmonary embolism. Normal thoracic aorta and visualized great vessels. There is no demonstrated aortic dissection. Normal heart and pericardium. Normal mediastinum. Normal hilar regions. Normal visualized trachea and bronchi. The lungs are well expanded. Normal pulmonary parenchyma. Normal pleura. Normal chest wall structures. Normal osseous structures. Normal visualized upper abdomen. CT/CTA Chest W/WO Contrast IMPRESSION: Normal CTA chest examination, without a demonstrated pulmonary embolism or arterial dissection. Electronically Signed: Alberto Ochoa MD at 8:44 EST , Service support ,
== END ==
PROVIDERS: PCP Family Medicine; Referring Provider Family Medicine; Visit Provider Family Medicine
DX: R07.9 Chest pain, unspecified (principal); R06.00 Dyspnea, unspecified
CPT/HCPCS: 71275; Q9967

== ENCOUNTER → 2021-02-17 14:44 | Outpatient (CLI) | payer OTHER, SELFPAY ==
[2021-02-17 17:40] LABS: CRP, High Sensitivity Cardiac 0.32 mg/L
[2021-02-17 18:16] LABS: Erythrocyte Sedimentation Rate < 1 mm/hr (0-20)
[2021-02-18 09:39] LABS: Troponin-I HS 4 pg/mL (3.0-78.0)
== END ==
PROVIDERS: PCP Family Medicine; Referring Provider Internal Medicine Cardiovascular Disease; Visit Provider Internal Medicine Cardiovascular Disease
DX: R07.89 Other chest pain (principal); R53.83 Other fatigue
CPT/HCPCS: 36415; 84484; 85652; 86141

== ENCOUNTER → 2021-02-25 06:31 | Outpatient (CLI) | payer OTHER, SELFPAY ==
--- NOTE | 2021-02-25 12:23 | STRESSREP ---
Stress Test Report His myocardial perfusion stress test. 40-year-old man with a history of chest pain. Stress protocol: Rest EKG demonstrates sinus bradycardia with rate of 50 bpm no acute changes are noted. The patient exercised according to regular Cj protocol for total duration of 12 minutes and 56 seconds. The maximum heart rate attained was 176 bpm which was 97% of max impact at heart rate the maximum workload was 16.8 metabolic equivalents. Patient almost completed 1 minute into stage V of the Cj protocol. At rest there were no ST or T wave changes noted to suggest ischemia and at peak exercise upsloping ST changes were noted with did not meet the criteria for ischemia. No clinical angina was noted. The test was terminated due to the target heart rate being achieved. Myocardial perfusion protocol. 10.6 mCi of technetium 99m sestamibi was injected at rest. The patient exercised according to regular Cj protocol. At peak exercise 32.0 mCi of technetium 99m sestamibi was injected stress images were obtained stress and rest images were reconstructed and compared in the short axis vertical long horizontal long axis. Gated images were also obtained. Perfusion SPECT analysis: Review of the stress images demonstrate normal uptake of tracer noted in all areas of the myocardium. The resting images similarly demonstrate normal uptake of tracer noted in all areas of the myocardium. No areas of reversibility are noted to suggest ischemia and no previous infarct is noted. Gated SPECT analysis: The gated ejection fraction is 58%. Conclusion: Normal exercise myocardial perfusion stress test at a high workload. Preserved ejection fraction. Excellent functional capacity.
== END ==
PROVIDERS: PCP Family Medicine; Referring Provider Internal Medicine Cardiovascular Disease; Visit Provider Internal Medicine Cardiovascular Disease
DX: R07.89 Other chest pain (principal); R53.83 Other fatigue
CPT/HCPCS: 78452; 93017; A9500; A4216

== ENCOUNTER 2021-03-26 12:52 | Outpatient (CLI) | payer OTHER, SELFPAY ==
--- NOTE | 2021-03-26 12:54 | ECHOD_ITS ---
Reason For Study: Chest Pain Procedure This was a 2D Doppler, Color Flow transthoracic echocardiogram. Exam performed in department. Left Ventricle Normal LV size. Left ventricular systolic function is normal. The estimated ejection fraction is 55 %. Normal diastology for age. No regional wall motion abnormalities noted. Right Ventricle Normal RV size. Normal systolic function. Atria Normal left atrium. Normal right atrium. Mitral Valve Normal mitral valve. Trivial mitral valve insufficiency. Tricuspid Valve Normal tricuspid valve. Trivial tricuspid valve insufficiency. Aortic Valve Normal aortic valve. Trisinus/trileaflet aortic valve. Pulmonic Valve Normal pulmonic valve. Great Vessels Normal aortic root. The pulmonary artery is normal size. Normal inferior vena cava. Pericardium/Pleural No pericardial effusion. MMode/2D Measurements & Calculations LVIDd: 4.6 cm IVSd: 0.77 cm LA dimension: 2.9 cm LVIDs: 3.0 cm LVPWd: 0.90 cm RVDd: 3.4 cm FS: 35.6 % LAV(MOD-bp): 40.8 ml LA A4 area: 15.4 cm2 RA A4 area: 16.8 cm2 LAV(MOD-bp) Indexed: 20.3 ml/m2 LAV(MOD-sp2): 39.3 ml LAV(MOD-sp4): 37.2 ml Time Measurements MV dec time: 0.38 sec Doppler Measurements & Calculations MV E max claude: 53.1 cm/sec Lat Peak E' Claude: 12.7 cm/sec Med Peak E' Claude: 12.0 cm/sec MV A max claude: 32.9 cm/sec E/E' lat: 4.2 E/E' med: 4.4 MV E/A: 1.6 MV V2 max: 60.1 cm/sec MV P1/2t max claude: 59.9 cm/sec Ao V2 max: 81.5 cm/sec MV max P.4 mmHg MV P1/2t: 114.4 msec Ao max P.7 mmHg MV V2 mean: 36.2 cm/sec MV dec slope: 153.2 cm/sec2 MV mean P.60 mmHg MVA(P1/2t): 1.9 cm2 MV V2 VTI: 22.2 cm LV V1 max: 70.1 cm/sec PA V2 max: 72.5 cm/sec TR max claude: 177.5 cm/sec LV V1 max P.0 mmHg TR max P.6 mmHg ECHO/Echo Complete Interpretation Summary Normal LV size. Left ventricular systolic function is normal. The estimated ejection fraction is 55 %. Normal diastology for age. Structurally normal valves. Ordering Physician: Jean Carlos Maya Referring Physician: Marco Scruggs Performed By: Kian Marrero RCS
[2021-03-26 15:40] LABS: CRP, High Sensitivity Cardiac 0.19 mg/L
== END 2021-03-26 23:59 | disposition short-term general hospital (02) ==
PROVIDERS: PCP Family Medicine; Referring Provider Internal Medicine Cardiovascular Disease; Visit Provider Internal Medicine Cardiovascular Disease
DX: R07.9 Chest pain, unspecified (principal); T88.1XXA Other complications following immunization, not elsewhere classified, initial encounter
CPT/HCPCS: 36415; 86141; 93306

== ENCOUNTER → 2021-12-03 | Outpatient (CLI) | payer OTHER, SELFPAY ==
[2021-12-03 10:14] LABS: Absolute Lymphocyte Count 1.94 X10^3/uL (0.83-4.51); Basophil# 0.05 X10^3/uL; Basophil% 0.9 % (0-1); Eosinophil# 0.36 X10^3/uL; Eosinophils% 6.1 % (0-5); Hematocrit 50.5 % (40-54); Hemoglobin 16.7 g/dL (13.0-16.5); Lymphocyte # 1.94 X10^3/ul (0.83-4.51); Mean Corp Hgb Conc 33.1 g/dL (32-36); Mean Corpuscular Hgb 30.8 pg (27.0-32.0); Mean Platelet Vol. 11.2 fl (6.2-12.0); Monocyte# 0.48 X10^3/uL; Monocyte% 8.2 % (0-10); NRBC Flagged by Analyzer 0 % (0-5); Neutrophil # 3.03 X10^3/uL (2.7-7.7); Neutrophil % 51.6 % (47-70); Platelet Count 252 K/mm3 (150-450); RBC Distribution Width CV 12.2 % (11.6-14.6); RBC Distribution Width SD 41.9 fl (35.1-43.9); Red Blood Count 5.43 M/mm3 (4.6-6.2); White Blood Count 5.9 K/mm3 (4.4-11.0)
== END | disposition home or self-care (01) ==
LOC: MTLAB 07:38
PROVIDERS: PCP Family Medicine; Referring Provider Family Medicine; Visit Provider Family Medicine
DX: D70.9 Neutropenia, unspecified (principal)
CPT/HCPCS: 36415; 85025

== ENCOUNTER → 2022-01-13 | Outpatient (CLI) | payer OTHER, SELFPAY ==
--- NOTE | 2022-01-13 07:20 | CT_ITS ---
STUDY: CT MAXILLOFACIAL SINUSES REASON FOR EXAM: Male, 41 years old. CHRONIC SINUSITIS RADIATION DOSAGE (If Supplied By Facility): CTDIvol = ( 28.14 ) mGy, DLP = ( 753.23 ) mGycm TECHNIQUE: The patient was scanned in a multi detector CT scanner. High resolution axial imaging was performed without the administration of intravenous contrast material. Sagittal and coronal images were reconstructed. Individualized dose optimization techniques were used for this CT. COMPARISON: MRI dated 02/28/2019 FINDINGS: FRONTAL SINUSES: There is stable trace opacification. ETHMOIDAL SINUSES: There is partial opacification of the ethmoid sinuses. MAXILLARY SINUSES: There is stable complete opacification of the right maxillary sinus. There is trace opacification of the left maxillary sinus. There is opacification of the right maxillary sinus ostia. SPHENOIDAL SINUSES: There is a round low-attenuation focus suggestive of a polyp or mucous retention cyst. There is trace opacification. Normal bilateral middle turbinates. Normal bilateral inferior turbinates. Normal midline nasal septum. There is patency of the bilateral nasal airways. The visualized osseous structures are normal. The visualized bilateral orbital contents are normal. CT/Sinus/Facial Bone IMPRESSION: Pansinusitis, most pronounced within the right maxillary sinus. Electronically Signed: Anni Ford MD at 8:23 EST ,
== END | disposition home or self-care (01) ==
LOC: CT 07:19
PROVIDERS: PCP Family Medicine; Visit Provider Otolaryngology
DX: J32.8 Other chronic sinusitis (principal); J33.9 Nasal polyp, unspecified
CPT/HCPCS: 70486

== ENCOUNTER 2022-02-02 12:08 | Day surgery (SDC) | payer OTHER, SELFPAY ==
[2022-02-02] VITALS (7 sets, daily range): BP systolic 108–124; BP diastolic 70–91; PULSE 49–65; RESP 16; TEMP 36.3–36.9; O2SAT 96–100; BMI 22.7
[2022-02-02] MEDS: Oxymetazoline 0.05% 1 SPRAY SPRAY.BTL NASAL (13:00)
[2022-02-02] MEDS: Lactated Ringers 1,000 ML 15 ML IV (13:08)
--- NOTE | 2022-02-02 13:22 | PCM.DC.SUM ---
Providers Primary Care Physician: Dr. Marco Scruggs DO Reason For Visit: RT ENDOSCOPIC INTRANASAL ETHMOID, MAXILLARY Medications at Discharge Home Medications albuterol sulfate 90 mcg/actuation aerosol inhaler 1 - 2 puff inhalation PRN PRN ASTHMA 01/28/22 Weight / BMI Weight Weight: 76 kg Body Mass Index (BMI) 22.7 D/C Instructions Discharge Diet: No restrictions Additional Activity Instructions: No nose blowing Additional Dressing/Incision Instructions: Irrigate 4x/day starting 02/03/22 Please Follow Up With: Miki Arenas MD When: 10 days Meaningful Use Info Meaningful Use Diagnoses (Choose all that apply): None applicable Discharge Plan Admission Attending Provider: Miki Arenas Primary Care Provider: Marco Scruggs Discharge Orders/Prescriptions Prescriptions: No Action albuterol sulfate 90 mcg/actuation HFA aerosol inhaler 1 - 2 puff INHALATION PRN PRN (Reason: ASTHMA) Label Comments: INHALE 2 PUFFS BY MOUTHCEVERY 4 HOURS NEEDED FOR SHORTNESS OF BREATH Referrals / Follow Up: Marco Scruggs DO [Primary Care Provider] - Disposition Disposition (needs filled in before D/C Order can be placed): Home, Self Care
[2022-02-02] MEDS: Lidocaine 2% /Epi 1:100 (20ml) 20 ML VIAL OPERA.SITE (13:39)
[2022-02-02] MEDS: Oxymetazoline 0.05% 1 SPRAY SPRAY.BTL 15 SPRAY (13:39)
--- NOTE | 2022-02-02 13:55 | NASAL_PTH ---
PATIENT: ASHWINI NASH LOC: [facility] [place] U#:[id number] AGE/SX: 41/M ROOM: RE02/02/[address]: Dr. Miki Arenas MD : 1980 BED: DIS: 02/02/2022 SPEC #: [id number] RECD: 02/02/22 16:03 STATUS: UMBERTO REAlysia #: [id number] VENANCIO: 02/02/22 13:[address]: Miki Arenas DEPT: SURGICAL PATHOLOGY RECD BY: Vicky Brandt ENTERED: 02/03/22 10:03 SP TYPE: NASAL SPEC OTHR DR: Dr. Marco Scruggs, Tissues: Ethmoid sinus, NOS Procedures: Decalcification bone/plaque Surgery Specimen Level III HEADER OPERATION: Endoscopic right maxillary antrostomy with tissue removal PRE-OP DIAGNOSIS: Right nasal cavity with chronic sinusitis TISSUE SUBMITTED: Right sinus contents MICROSCOPIC DIAGNOSIS Right sinus contents, curettings: Consistent with chronic sinusitis. Rare fragments of bone with no pathologic change. AM:anneliese 02/04/2022 MICROSCOPIC DESCRIPTION Slides are reviewed. GROSS DESCRIPTION Received in fixative is one container labeled with the patient's name and designated right sinus contents. The specimen consists of multiple irregular fragments of light montoya soft tissue mixed with possible fragments of bone that in aggregate measure 3 x 2.5 x 0.3 cm. The specimen is totally submitted in one cassette after decalcification. / SYDNEE:anneliese 02/03/2022 TC:3 CPT: 19180, 00073
--- NOTE | 2022-02-02 14:11 | OP.PCM_ITS ---
Report of Operation Date of Procedure: 02/02/22 Pre-Operative Diagnosis: right chronic sinusitis right maxillary sinus polyp Post-Operative Diagnosis: same Surgery/Procedure Performed:: right anterior ethmoidectomy right maxillary antrostomy with polyp removal Surgeon: Miki Arenas Type of Anesthesia: General Anesthesiologist: Kenrick Joyce Estimated Blood Loss (mL): <5 cc Description of Procedure: The patient was taken to the operating room on 02/02/2022. The patient was placed in the supine position on the operating table. The patient was given sufficient general endotracheal anesthesia. The head of bed was elevated 30 degrees. The navigation system was placed and verified per protocol and found to be accurate. 0 and 30 degrees rigid nasal endoscopes were used throughout the entire case. The middle turbinate uncinate process and polyps were injected with 2% lidocaine with epinephrine. The right middle turbinate was medialized with a Reddell elevator. The right middle turbinate was Bolgerized with a sinus shaver. Polyp was removed from the middle meatus using a sinus shaver. A ball- tipped sinus seeker was placed into the patient's maxillary sinus. The maxillary antrostomy was created with a backbiter. The uncinate process was taken down using a microdebrider. Tissue was removed from the maxillary sinus using a microdebrider and giraffe forceps with a 30 degree rigid nasal endoscope for visualization. Next, the ethmoid bulla was opened with a small curette. Anterior ethmoidectomy were then carried out using curette, sinus shaver and 45 degree Blakesley Myra forceps. Ethmoid cells were verified for relation to the skull base and orbit prior to being entered with the navigation system. I then placed Afrin pledgets into the sinonasal cavity. The pledgets were then removed bilaterally and Mike powder was applied for absolute hemostasis. The procedure was then terminated. The patient was then awoken and brought to the recovery room in stable condition blood loss less than 5 cc,replacement none. Sponge, needle, instrument count were correct at the end of the procedure.
[2022-02-02] MEDS: proMETHazine 25 MG/ML Syringe 6.25 MG IM (15:44)
== END 2022-02-02 16:29 | disposition home or self-care (01) ==
LOC: SDC 12:10 → AC 12:12
PROVIDERS: PCP Family Medicine; Referring Provider Otolaryngology; Visit Provider Otolaryngology
PROC: (CPT 30110; principal; 2022-02-02 13:25)
DX: J32.9 Chronic sinusitis, unspecified (principal); J33.8 Other polyp of sinus; J45.990 Exercise induced bronchospasm; E80.4 Gilbert syndrome; K58.9 Irritable bowel syndrome, unspecified; J33.0 Polyp of nasal cavity
CPT/HCPCS: 30110; 31267; 00160; 88304; 88305; 88311; J7120; J2405

== ENCOUNTER → 2022-02-18 | Outpatient (CLI) | payer OTHER, SELFPAY ==
[2022-02-18 15:36] LABS: Hematocrit 49.3 % (40-54); Hemoglobin 16.3 g/dL (13.0-16.5); Mean Corp Hgb Conc 33.1 g/dL (32-36); Mean Corpuscular Hgb 30.6 pg (27.0-32.0); Mean Corpuscular Volume 92.7 fL (80-94); Mean Platelet Vol. 11.4 fl (6.2-12.0); Platelet Count 256 K/mm3 (150-450); RBC Distribution Width CV 11.9 % (11.6-14.6); RBC Distribution Width SD 40.7 fl (35.1-43.9); Red Blood Count 5.32 M/mm3 (4.6-6.2)
[2022-02-18 15:49] LABS: Vitamin B12 451 pg/mL (211-911)
[2022-02-18 16:08] LABS: ALB/GLOB Ratio 1.3 RATIO (0.9-2.4); AST(SGOT) 22 U/L (15-37); Alanine Aminotransfer ALT/SGPT 29 U/L (16-61); Albumin, Serum 3.9 g/dL (3.2-5.0); Alkaline Phosphatase 41 U/L (45-117); Anion Gap 6 (5-15); BUN 15 mg/dL (7-18); BUN/Creat Ratio 12.9 RATIO (10-20); Calcium,Total 9.2 mg/dL (8.5-10.1); Chloride 103 mmol/L (98-107); Creatinine, Serum 1.16 mg/dL (0.70-1.30); EST Glomerular Filtration Rate 74 mL/min (>60); Est Glom Filt Rate - Afr Amer 89 mL/min (>60); Glucose 86 mg/dL (74-106); Potassium 4.5 mmol/L (3.5-5.1); Protein, Total 6.9 g/dL (6.4-8.2); Sodium Level 139 mmol/L (136-145); Thyroid Stim Hormone (TSH) 0.73 uIU/mL (0.358-3.74)
== END | disposition home or self-care (01) ==
LOC: MTLAB 11:35
PROVIDERS: PCP Family Medicine; Referring Provider Psychiatry & Neurology Neurology; Visit Provider Psychiatry & Neurology Neurology
DX: G43.009 Migraine without aura, not intractable, without status migrainosus (principal); R53.83 Other fatigue; R41.3 Other amnesia
CPT/HCPCS: 36415; 80053; 82607; 82746; 84425; 84443; 85027

== ENCOUNTER → 2022-03-23 | Outpatient (CLI) | payer OTHER, SELFPAY ==
--- NOTE | 2022-03-23 06:29 | MRI_ITS ---
EXAM: MR HEAD WITHOUT AND WITH INTRAVENOUS CONTRAST CLINICAL INDICATION: Migraine headaches; recent right maxillary surgery TECHNIQUE: Multiplanar and multisequence MR images of the brain were obtained without and with intravenous contrast. This report was created using [employer] report [employer] technology. CONTRAST: IV 15ml Clariscan COMPARISON: MRI brain with and without contrast 02/28/2019. FINDINGS: BRAIN AND EXTRA-AXIAL SPACES: Following IV contrast administration, there are no abnormal enhancing lesions intra-axially and extra-axially. No intra- or extra-axial hemorrhage. No intracranial mass or mass effect. Posterior fossa structures are unremarkable. No hydrocephalus. No diffusion restriction to suspect acute or subacute ischemic infarct. No focal signal abnormalities throughout the brain parenchyma in all pulse sequences. Normal ventricles and cisterns. SELLA: Unremarkable. Normal sella turcica, pituitary gland, infundibular stalk, optic chiasm and hypothalamus. AUDITORY SYSTEM: Unremarkable. The internal auditory canals are patent. BONES/JOINTS: See below. SINUSES: Moderate decrease mucosal thickening in the right maxillary sinus. Moderate improvement of moderate mucosal edema in the left ethmoid sinus and minimal residual mucosal edema in the right anterior ethmoid sinus. Normal remaining paranasal sinuses. MASTOID AIR CELLS: Unremarkable as visualized. Clear. ORBITS: Unremarkable as visualized. Both globes, extraocular muscles, optic nerves and retrobulbar fat appear unremarkable. VASCULATURE: Unremarkable as visualized. Normal flow voids in the major intracranial circulation. MRI/Brain W/WO Contrast IMPRESSION: 1. Normal MRI brain with and without contrast. 2. Marked improvement of pronounced mucosal thickening in the right maxillary sinus and moderate improvement of moderate mucosal thickening in the left ethmoid sinus and minimal residual mucosal thickening in the right ethmoid sinus. Electronically Signed: Jamie Padgett MD at 8:28 EST ,
== END | disposition home or self-care (01) ==
LOC: MRI 06:29
PROVIDERS: PCP Family Medicine; Referring Provider Psychiatry & Neurology Neurology; Visit Provider Psychiatry & Neurology Neurology
DX: G43.009 Migraine without aura, not intractable, without status migrainosus (principal)
CPT/HCPCS: 70553; A9575

== ENCOUNTER → 2022-08-04 | Outpatient (CLI) | payer OTHER, SELFPAY ==
[2022-08-04 17:49] LABS: Absolute Lymphocyte Count 1.89 X10^3/uL (0.83-4.51); Absolute Neutrophil Count 2.7 X10^3/uL (2.0-7.7); Basophil# 0.05 X10^3/uL; Basophil% 0.9 % (0-1); Eosinophil# 0.25 X10^3/uL; Eosinophils% 4.7 % (0-5); Hematocrit 48.3 % (40-54); Hemoglobin 15.9 g/dL (13.0-16.5); Lymphocyte # 1.89 X10^3/ul (0.83-4.51); Lymphocyte % 35.7 % (19-41); Mean Corp Hgb Conc 32.9 g/dL (32-36); Mean Corpuscular Hgb 30.9 pg (27.0-32.0); Mean Corpuscular Volume 93.8 fL (80-94); Mean Platelet Vol. 11.3 fl (6.2-12.0); Monocyte# 0.44 X10^3/uL; Monocyte% 8.3 % (0-10); NRBC Flagged by Analyzer 0 % (0-5); Neutrophil # 2.65 X10^3/uL (2.7-7.7); Neutrophil % 50.2 % (47-70); Platelet Count 223 K/mm3 (150-450); RBC Distribution Width SD 41.5 fl (35.1-43.9); Red Blood Count 5.15 M/mm3 (4.6-6.2); White Blood Count 5.3 K/mm3 (4.4-11.0)
[2022-08-04 18:43] LABS: Anion Gap 3 (5-15); BUN 17 mg/dL (7-18); BUN/Creat Ratio 14.4 RATIO (10-20); Calcium,Total 9.1 mg/dL (8.5-10.1); Chloride 107 mmol/L (98-107); Creatinine, Serum 1.18 mg/dL (0.70-1.30); EST Glomerular Filtration Rate 72 mL/min (>60); Est Glom Filt Rate - Afr Amer 87 mL/min (>60); Glucose 88 mg/dL (74-106); Magnesium 2.6 mg/dL (1.6-2.6); Potassium 4.2 mmol/L (3.5-5.1); Sodium Level 139 mmol/L (136-145); Thyroid Stim Hormone (TSH) 1.03 uIU/mL (0.358-3.74)
== END | disposition home or self-care (01) ==
LOC: MTLAB 14:41
PROVIDERS: PCP Family Medicine; Referring Provider Internal Medicine Cardiovascular Disease; Visit Provider Internal Medicine Cardiovascular Disease
DX: R55 Syncope and collapse (principal)
CPT/HCPCS: 36415; 80048; 83735; 84443; 85025

== ENCOUNTER → 2022-08-26 | Outpatient (CLI) | payer OTHER, SELFPAY ==
[2022-08-26 16:45] LABS: CPK Total, Creatine Kinase 203 U/L (39-308); Troponin-I HS 5 pg/mL (3.0-78.0)
[2022-08-28 13:08] LABS: ANTINUCLEAR ANTIBODIES DIRECT Negative (Negative)
== END | disposition home or self-care (01) ==
PROVIDERS: PCP Family Medicine; Referring Provider Family Medicine; Visit Provider Family Medicine
DX: R07.9 Chest pain, unspecified (principal); D72.819 Decreased white blood cell count, unspecified
CPT/HCPCS: 36415; 82550; 84484; 86038; 86225; 86235

== ENCOUNTER → 2022-09-28 | Outpatient (CLI) | payer OTHER, SELFPAY ==
[2022-09-28 15:06] LABS: Color, Urine Yellow (Yellow); Ketone-Dipstick Negative (Negative); Nitrite-Dipstick Negative (Negative); Occult Blood-Urine Negative /ul (Negative); Urine Bilirubin Dipstick Negative (Negative); Urine Clarity Sl. Cloudy (Clear); Urine Urobilinogen Normal (Normal)
[2022-09-28 15:16] LABS: Glucose, Dipstick Normal (Normal)
[2022-09-28 15:17] LABS: Leukocyte Esterase-Dipstick Negative /ul (Negative); Protein-Dipstick Negative (Negative)
== END | disposition home or self-care (01) ==
PROVIDERS: PCP Family Medicine; Referring Provider Family Medicine; Visit Provider Family Medicine
DX: R30.0 Dysuria (principal)
CPT/HCPCS: 81002

== ENCOUNTER → 2022-10-02 | Outpatient (CLI) | payer OTHER, SELFPAY ==
--- NOTE | 2022-10-02 12:35 | CT_ITS ---
STUDY: CT CHEST WITH CONTRAST REASON FOR EXAM: Male, 42 years old. Exertional chest pain- LIMITED CHEST OVER READ ONLY RADIATION DOSAGE (If Supplied By Facility): CTDIvol = ( 29.18 ) mGy, DLP = ( 1559.09 ) mGycm TECHNIQUE: Transaxial imaging was performed following intravenous administration of IV 60mL Isovue-370. Individualized dose optimization techniques were used for this CT. COMPARISON: No relevant priors. FINDINGS: CHEST The lungs are normal. There is no demonstrated pleural abnormality. There are calcifications of the coronary arteries. Normal mediastinum. Normal hilar regions. Normal unenhanced pulmonary arteries. Normal aorta arch and descending thoracic aorta. Normal osseous structures. There is no demonstrated abnormality of the visualized upper abdomen. CT/Limited Chest CT Cardiac Only IMPRESSION: Coronary artery calcification. Electronically Signed: Alberto Ochoa MD at 13:42 EDT ,
[2022-10-02 12:45] VITALS: BP 112/73; PULSE 48; RESP 16; O2SAT 100; BMI 20.3
[2022-10-02] MEDS: 0.9% Saline Lock 10 ML Syringe IV (13:00)
[2022-10-02 13:05] VITALS: BP 112/73; PULSE 48
[2022-10-02] MEDS: Nitroglycerin (INPATIENT USE) 0.4 MG TAB.SUBL SL (13:05)
[2022-10-02 13:14] VITALS: BP 111/61; BP 112/73; PULSE 42; RESP 18; O2SAT 100
--- NOTE | 2022-10-04 10:07 | CCTA.WCONT ---
CCTA w/Cont Coronary Arteries Date of Study:: 10/02/22 Chest pain Coronary Calcium Scoring: High-resolution Computed Tomographic imaging of the chest was performed on [10/02/2022], with particular attention paid to the coronary arteries. Intravenous contrast agent was administered per protocol and images reconstructed and displayed. LEFT MAIN CORONARY ARTERY: [This arose from the left coronary cusp and bifurcating to left anterior descending artery and left circumflex artery. No significant stenosis was noted in this vessel] LEFT ANTERIOR DESCENDING CORONARY ARTERY: [This arose from the left main coronary artery. It was a medium size vessel and coursed towards the apex of the ventricle with mild luminal irregularities present.] LEFT CIRCUMFLEX CORONARY ARTERY: [A nondominant vessel with a focal area of calcification in the midsegment with nonobstructive plaque present] RIGHT CORONARY ARTERY: [Large vessel arising from the right coronary cusp with mild ostial stenosis in mid segment 2 focal areas of calcification with moderate amount of plaque noted appears to be nonobstructive.] THORACIC AORTA: [Normal] [] CORONARY CALCIUM SCORE: 162 The Agatston percentile ranking is greater than 90% Conclusion: Coronary atherosclerosis noted with 1-2 vessels with mild to moderate atherosclerotic plaquing noted. []
== END | disposition home or self-care (01) ==
PROVIDERS: PCP Family Medicine; Referring Provider Internal Medicine Cardiovascular Disease; Visit Provider Internal Medicine Cardiovascular Disease
DX: R07.9 Chest pain, unspecified (principal)
CPT/HCPCS: 75571; 75574; 76380; Q9967; A4216

== ENCOUNTER → 2022-10-14 | Outpatient (CLI) | payer OTHER, SELFPAY ==
[2022-10-15 15:08] LABS: Lipoprotein A 26.8 nmol/L (<75.0)
== END | disposition home or self-care (01) ==
PROVIDERS: PCP Family Medicine; Referring Provider Family Medicine; Visit Provider Family Medicine
DX: I25.10 Atherosclerotic heart disease of native coronary artery without angina pectoris (principal)
CPT/HCPCS: 36415; 83695

== ENCOUNTER → 2022-11-10 | Outpatient (CLI) | payer OTHER, SELFPAY ==
[2022-11-10 12:57] LABS: Absolute Lymphocyte Count 1.78 X10^3/uL (0.83-4.51); Basophil# 0.06 X10^3/uL; Basophil% 1.3 % (0-1); Eosinophil# 0.22 X10^3/uL; Eosinophils% 4.9 % (0-5); Hematocrit 49.1 % (40-54); Lymphocyte # 1.78 X10^3/ul (0.83-4.51); Lymphocyte % 39.9 % (19-41); Mean Corp Hgb Conc 32.6 g/dL (32-36); Mean Corpuscular Hgb 30.5 pg (27.0-32.0); Mean Corpuscular Volume 93.5 fL (80-94); Monocyte# 0.41 X10^3/uL; Monocyte% 9.2 % (0-10); NRBC Flagged by Analyzer 0 % (0-5); Neutrophil # 1.98 X10^3/uL (2.7-7.7); Neutrophil % 44.5 % (47-70); Platelet Count 218 K/mm3 (150-450); RBC Distribution Width CV 12.2 % (11.6-14.6); RBC Distribution Width SD 42.2 fl (35.1-43.9); Red Blood Count 5.25 M/mm3 (4.6-6.2); White Blood Count 4.5 K/mm3 (4.4-11.0)
[2022-11-10 13:20] LABS: Anion Gap 2 (5-15); BUN 15 mg/dL (7-18); BUN/Creat Ratio 13.6 RATIO (10-20); CRP, High Sensitivity Cardiac 0.17 mg/L; Calcium,Total 9.1 mg/dL (8.5-10.1); Chloride 106 mmol/L (98-107); EST Glomerular Filtration Rate 78 mL/min (>60); Est Glom Filt Rate - Afr Amer 94 mL/min (>60); Glucose 96 mg/dL (74-106); Potassium 4.3 mmol/L (3.5-5.1); Sodium Level 139 mmol/L (136-145)
== END | disposition home or self-care (01) ==
LOC: LAB 12:22
PROVIDERS: PCP Family Medicine; Referring Provider Internal Medicine Cardiovascular Disease; Visit Provider Internal Medicine Cardiovascular Disease
DX: I25.10 Atherosclerotic heart disease of native coronary artery without angina pectoris (principal); R07.9 Chest pain, unspecified
CPT/HCPCS: 36415; 80048; 85025; 86141

== ENCOUNTER 2022-11-25 10:14 | Day surgery (SDC) | payer OTHER, SELFPAY ==
[2022-11-24 07:43] VITALS: BMI 22.5
--- NOTE | 2022-11-25 12:39 | CL.D_ITS ---
Patient Name: ASHWINI NASH Study Date: 11/25/2022 Performing: Jean Carlos Maya MD Ht: 72 inches 182.88 cm : 1980 Wt: 166.01 lbs 75.3 kg Age: 42 Gender: male BSA: 1.97 PROCEDURE(S) PERFORMED [id number])LHC/COR/LV CLINICAL PROFILE AND INDICATIONS Indications: Suspected CAD Heart Failure: None Stress/Imaging Date: 02/18/21 CAD Presentations: Symptom unlikely to be ischemic. CONCLUSIONS Non obstructive coronary arteries RECOMMENDATIONS Medical therapy DESCRIPTION OF PROCEDURE The patient arrived to the procedure lab. The risks and benefits of the procedure as well as a full description of our services here and current unavailability of surgical backup were fully explained to the patient and/or their significant other prior to the catheterization. The Timeout was completed, verifying the correct patient and procedure. The patient's procedural site was prepped and draped in the usual fashion. Local anesthetic was given subcutaneously to right radial region with Lidocaine 2%. Using a modified Seldinger technique, arterial access was obtained via the right radial artery, a 6Fr sheath was inserted. Left Coronary Artery selective angiography was performed in multiple views using a 5 Fr. 4.0 [place] catheter. Right Coronary Artery selective angiography was then performed in multiple views using a 5 Fr. 4.0 [place] catheter. Left Ventriculography was performed in BOUCHER projection using a 5 Fr. Pigtail catheter. LV to AO pullback pressures were then recorded.The arterial sheath was pulled and a TR Band was applied for hemostasis CORONARY ANGIOGRAPHY DOMINANCE: Right Dominant LEFT HEART ASSESSMENT Left Ventricular Ejection Fraction: by LV Gram 65 % Normal LV wall motion Normal Left Ventricular systolic function LEFT MAIN: Angiographically normal LEFT ANTERIOR DESCENDING ARTERY: No significant disease noted CIRCUMFLEX ARTERY: No significant disease noted RIGHT CORONARY ARTERY: Mild calcification Mild luminal irregularities less than 30% COMPLICATIONS No Complications PROCEDURE MEDICATIONS Fentanyl 50 mcg IV Versed 1 mg IV Versed 1 mg IV Oxygen: 2 L/min via nasal cannula Heparin given IA 11/25/2022 12:22:36 Verapamil 2.5mg, Ntg 100mcgs, 3000 units of Heparin given IA 11/25/2022 12:22:36 SUMMARY OF HEMODYNAMIC DATA Time AIR REST ECG 10:44:06 AO 95/66 (80) SA 12:28:28 LV 103/11, 16 12:30:53 LV 101/10, 16 12:31:00 LV 103/9, 17 12:31:24 LV 97/11, 19 12:31:32 LVp 101/11, 18 12:31:35 AOp 99/62 (79) 12:31:42 Signed By Jean Carlos Maya MD On 11/25/2022 12:38:02 Jean Carlos Maya MD
== END 2022-11-25 14:15 | disposition home or self-care (01) ==
PROVIDERS: PCP Family Medicine; Referring Provider Internal Medicine Cardiovascular Disease; Visit Provider Internal Medicine Cardiovascular Disease
DX: R07.9 Chest pain, unspecified (principal); I25.10 Atherosclerotic heart disease of native coronary artery without angina pectoris; R55 Syncope and collapse; J45.990 Exercise induced bronchospasm; Z82.49 Family history of ischemic heart disease and other diseases of the circulatory system
CPT/HCPCS: 93458; 99152; J7040; Q9967; C1769; C1894

== ENCOUNTER → 2023-06-30 | Outpatient (CLI) | payer OTHER, SELFPAY ==
[2023-06-30 12:50] LABS: AST(SGOT) 36 U/L (15-37); Alanine Aminotransfer ALT/SGPT 27 U/L (16-61); Albumin, Serum 4.2 g/dL (3.2-5.0); Alkaline Phosphatase 41 U/L (45-117); Bilirubin, Direct 0.39 mg/dL (0.00-0.30); Cholesterol 184 mg/dL (200); Globulin 2.9 g/dL (2.2-4.2); High Density Lipoprotein 73 mg/dL; Protein, Total 7.1 g/dL (6.4-8.2); Triglycerides 37 mg/dL; Very Low Density Lipoprotein 7 mg/dL (5-40)
== END | disposition home or self-care (01) ==
PROVIDERS: PCP Family Medicine; Referring Provider Internal Medicine Cardiovascular Disease; Visit Provider Internal Medicine Cardiovascular Disease
DX: I25.10 Atherosclerotic heart disease of native coronary artery without angina pectoris (principal)
CPT/HCPCS: 36415; 80061; 80076

== ENCOUNTER → 2023-09-22 | Outpatient (CLI) | payer OTHER, SELFPAY ==
[2023-09-22 13:35] LABS: Erythrocyte Sedimentation Rate < 1 mm/hr (0-20)
[2023-09-22 13:37] LABS: Absolute Lymphocyte Count 1.58 X10^3/uL (0.83-4.51); Absolute Neutrophil Count 2.2 X10^3/uL (2.0-7.7); Basophil# 0.03 X10^3/uL; Basophil% 0.7 % (0-1); Eosinophil# 0.14 X10^3/uL; Eosinophils% 3.3 % (0-5); Hemoglobin 15.3 g/dL (13.0-16.5); Lymphocyte # 1.58 X10^3/ul (0.83-4.51); Lymphocyte % 37.6 % (19-41); Mean Corp Hgb Conc 33.3 g/dL (32-36); Mean Corpuscular Hgb 30.8 pg (27.0-32.0); Mean Corpuscular Volume 92.6 fL (80-94); Mean Platelet Vol. 11.2 fl (6.2-12.0); Monocyte# 0.29 X10^3/uL; Monocyte% 6.9 % (0-10); NRBC Flagged by Analyzer 0 % (0-5); Neutrophil # 2.15 X10^3/uL (2.7-7.7); Neutrophil % 51.3 % (47-70); Platelet Count 218 K/mm3 (150-450); RBC Distribution Width CV 12.1 % (11.6-14.6); RBC Distribution Width SD 41.2 fl (35.1-43.9); Red Blood Count 4.97 M/mm3 (4.6-6.2); White Blood Count 4.2 K/mm3 (4.4-11.0)
[2023-09-22 14:09] LABS: CRP < 2.90 mg/L (0.0-3.0); Rheumatoid Factor < 10.0 IU/mL (<15)
[2023-09-24 13:08] LABS: CCP IgG Antibodies 2 units (0-19); Lyme Scn Total Ab w/Rflx Negative (Negative)
[2023-09-24 15:09] LABS: ANTINUCLEAR ANTIBODIES DIRECT Negative (Negative)
== END | disposition home or self-care (01) ==
LOC: LAB 13:07
PROVIDERS: PCP Family Medicine; Visit Provider Family Medicine
DX: M13.0 Polyarthritis, unspecified (principal); R53.83 Other fatigue
CPT/HCPCS: 36415; 85025; 85652; 86038; 86140; 86200; 86225; 86235; 86431; 86618

== ENCOUNTER → 2024-06-06 | Outpatient (CLI) | payer OTHER, SELFPAY | END | disposition home or self-care (01) | LOC: MTRAD 14:20 | PROVIDERS: PCP Family Medicine; Referring Provider Chiropractor; Visit Provider Chiropractor | DX: M54.2 Cervicalgia (principal); M99.02 Segmental and somatic dysfunction of thoracic region; M99.01 Segmental and somatic dysfunction of cervical region | CPT/HCPCS: 72040 ==